=== PATIENT | female | born 1945 | race Caucasian/White ===

== ENCOUNTER → 2017-07-15 15:46 | Outpatient (CLI) | payer MEDICARE, MEDICAID, SELFPAY ==
[2017-07-15 16:07] LABS: Hemoglobin 13.3 g/dl (12.0-15.0); Mean Corp Hgb Conc 33.3 g/gl (32-36); Mean Corpuscular Hgb 32.4 pg (27.0-32.0); Mean Corpuscular Volume 97.6 fL (81-99); Mean Platelet Vol. 11.3 fl (6.2-12.0); Platelet Count 183 K/mm3 (150-450); RBC Distribution Width CV 12.9 % (11.6-14.6); RBC Distribution Width SD 46.1 fl (35.1-43.9); White Blood Count 4.2 K/mm3 (4.4-11.0)
[2017-07-15 16:19] LABS: Scan Indicated on CBC? Y/N NO
[2017-07-15 16:27] LABS: ALB/GLOB Ratio 1.2 RATIO (0.9-2.4); AST(SGOT) 20 U/L (15-37); Alanine Aminotransfer ALT/SGPT 16 U/L (13-56); Albumin, Serum 3.9 g/dL (3.2-5.0); Alkaline Phosphatase 68 U/L (45-117); Anion Gap 6 (5-15); BUN 11 mg/dL (7-18); Chloride 103 mmol/L (98-107); Cholesterol 130 mg/dL (200); EST Glomerular Filtration Rate 59 mL/min (>60); Est Glom Filt Rate - Afr Amer 71 mL/min (>60); Globulin 3.3 g/dL (2.2-4.2); Glucose 90 mg/dL (74-106); High Density Lipoprotein 50 mg/dL; Potassium 4.6 mmol/L (3.5-5.1); Protein, Total 7.2 g/dL (6.4-8.2); Sodium Level 136 mmol/L (136-145); Thyroid Stim Hormone (TSH) 1.22 uIU/mL (0.358-3.74); Triglycerides 59 mg/dL; Very Low Density Lipoprotein 12 mg/dL (5-40)
[2017-07-15 16:39] LABS: International Normalized Ratio 1.1; Prothrombin Time (Protime)PT. 13.7 SECONDS (11.7-14.9)
== END ==
PROVIDERS: Family Provider Student in an Organized Health Care Education/Training Program; PCP Student in an Organized Health Care Education/Training Program; Visit Provider Student in an Organized Health Care Education/Training Program
DX: I10 Essential (primary) hypertension (principal); R23.8 Other skin changes; E78.5 Hyperlipidemia, unspecified; Z79.899 Other long term (current) drug therapy
CPT/HCPCS: 80053; 80061; 84443; 85027; 85610

== ENCOUNTER → 2018-08-21 13:15 | Outpatient (CLI) | payer MEDICARE, MEDICAID, SELFPAY ==
[2018-08-21 13:32] LABS: Hematocrit 37.2 % (37-47); Hemoglobin 12.3 g/dl (12.0-15.0); Mean Corp Hgb Conc 33.1 g/gl (32-36); Mean Corpuscular Hgb 32.1 pg (27.0-32.0); Mean Corpuscular Volume 97.1 fL (81-99); Mean Platelet Vol. 11.8 fl (6.2-12.0); Platelet Count 141 K/mm3 (150-450); RBC Distribution Width CV 12.7 % (11.6-14.6); Red Blood Count 3.83 M/mm3 (4.2-5.4); White Blood Count 3.9 K/mm3 (4.4-11.0)
[2018-08-21 13:34] LABS: Scan Indicated on CBC? Y/N NO
[2018-08-21 13:49] LABS: ALB/GLOB Ratio 1.2 RATIO (0.9-2.4); AST(SGOT) 21 U/L (15-37); Alanine Aminotransfer ALT/SGPT 15 U/L (13-56); Albumin, Serum 3.4 g/dL (3.2-5.0); Alkaline Phosphatase 55 U/L (45-117); Anion Gap 4 (5-15); BUN 12 mg/dL (7-18); BUN/Creat Ratio 12.8 RATIO (10-20); Calcium,Total 8.7 mg/dL (8.5-10.1); Chloride 106 mmol/L (98-107); Cholesterol 102 mg/dL (200); Creatinine, Serum 0.94 mg/dL (0.55-1.02); EST Glomerular Filtration Rate 63 mL/min (>60); Est Glom Filt Rate - Afr Amer 76 mL/min (>60); Globulin 2.9 g/dL (2.2-4.2); Glucose 77 mg/dL (74-106); High Density Lipoprotein 48 mg/dL; Potassium 4.3 mmol/L (3.5-5.1); Protein, Total 6.3 g/dL (6.4-8.2); Sodium Level 138 mmol/L (136-145); Thyroid Stim Hormone (TSH) 1.26 uIU/mL (0.358-3.74); Triglycerides 46 mg/dL; Very Low Density Lipoprotein 9 mg/dL (5-40)
== END ==
PROVIDERS: Family Provider Student in an Organized Health Care Education/Training Program; PCP Student in an Organized Health Care Education/Training Program; Referring Provider Student in an Organized Health Care Education/Training Program; Visit Provider Student in an Organized Health Care Education/Training Program
DX: I10 Essential (primary) hypertension (principal); E78.5 Hyperlipidemia, unspecified; Z79.899 Other long term (current) drug therapy
CPT/HCPCS: 80053; 80061; 84443; 85027

== ENCOUNTER 2021-08-29 19:13 | Emergency (ER) | payer MEDICARE, MEDICAID, SELFPAY ==
[2021-08-29 19:14] VITALS: BP 157/88; PULSE 101; RESP 17; TEMP 37.2; O2SAT 96; BMI 21.4
--- NOTE | 2021-08-29 19:28 | RAD_ITS ---
STUDY: X-RAY CHEST REASON FOR EXAM: Female, 75 years old. cp TECHNIQUE: Single AP portable view of the chest. COMPARISON: None. FINDINGS: There is hyperinflation of the lungs consistent with chronic obstructive lung disease (COPD). There is no demonstrated pleural abnormality. There is moderate cardiac enlargement. Normal mediastinum and yany. Normal visualized pulmonary arteries. Normal visualized aortic arch and descending thoracic aorta. Normal visualized thoracic spine. Normal visualized ribs, clavicles, and shoulders. There is no demonstrated abnormality of the visualized soft tissue structures of the upper abdomen. RAD/Chest 1 View (Portable) IMPRESSION: Emphysema without pneumonia or atelectasis. Electronically Signed: Arcadio Wright MD at 21:48 EDT ,
--- NOTE | 2021-08-29 19:30 | EKG12_ITS ---
Test Reason : DYSRHYTHMIA Blood Pressure : / mmHG Vent. Rate : 096 BPM Atrial Rate : 096 BPM P-R Int : 116 ms QRS Dur : 084 ms QT Int : 342 ms P-R-T Axes : 063 010 047 degrees QTc Int : 432 ms Sinus rhythm with marked sinus arrhythmia Otherwise normal ECG Confirmed by TRISH PINON, COLLENE ([id number]), design editor JOSE MARTIN PAUL ([id number]) on 09/01/2021 9:59:42 AM Referred By: KARIME Confirmed By:COLLEEN CHAMBERS MD
--- NOTE | 2021-08-29 19:32 | EX.ED.DYSGE1 ---
HPI History of Present Illness Chief Complaint: Complaint Detail of Chief Complaint: Confusion Informant: patient and family Onset/Context/Timing Onset: Days Context: Gradual Onset Current Severity: Mild Maximum Severity: Moderate Narrative Narrative: Patient presents with family for evaluation of increased confusion. Several days ago family called PCPs office stating that the patient had some increased confusion along with urinary symptoms and back pain. A prescription for Macrobid was called to the pharmacy. Patient presents to the emergency room today with family because symptoms are not improving and if anything confusion has worsened. Family does believe she had a fever this morning but did not measure it. She reports some mild chest pain but no cough or shortness of breath. She denies abdominal pain. She does report left back pain. She does report dysuria. [facility] Medical History (Updated 08/29/21 @ 23:[address] Tonya Bee MD) Anxiety Depression Dislocation of right shoulder joint Former smoker Hypertension Mitral valve prolapse Home Medications aspirin 325 mg tablet 325 mg PO DAILY@0800 08/23/13 [History Last Taken Unknown] citalopram 20 mg tablet 20 mg PO QHS 08/23/13 [History Last Taken Unknown] lisinopril 20 mg tablet 20 mg PO DAILY 08/23/13 [History Last Taken 08/29/13 05:00] simvastatin 20 mg tablet 20 mg PO QHS 08/23/13 [History Last Taken Unknown] oxycodone-acetaminophen 5 mg-325 mg tablet 1 - 2 tab PO Q4H PRN PRN Pain ##20 08/24/13 [Rx Last Taken Unknown] aspirin 325 mg tablet,delayed release 325 mg PO BID ##30 08/30/13 [Rx Last Taken Unknown] docusate sodium 100 mg capsule (DOK) 100 mg PO BID PRN PRN Constipation ##10 08/30/13 [Rx Last Taken Unknown] oxycodone-acetaminophen 5 mg-325 mg tablet 1 - 2 tab PO Q4H PRN PRN Pain ##60 08/30/13 [Rx Last Taken Unknown] promethazine 25 mg tablet 25 mg PO Q4H PRN PRN Nausea ##10 08/30/13 [Rx Last Taken Unknown] sulfamethoxazole 400 mg-trimethoprim 80 mg tablet (Bactrim) 1 tab PO BID ##14 08/30/13 [Rx Last Taken Unknown] Allergy/AdvReac Type Severity Reaction Status Date / Time Latex, Natural Rubber Allergy Rash Verified 08/29/21 19:16 codeine AdvReac Upset Verified 08/29/21 19:16 Stomach morphine AdvReac Upset Verified 08/29/21 19:16 Stomach Surgical History (Updated 08/29/21 @ 22:[address] Sonam Hartley MD) H/O tubal ligation History of appendectomy History of bladder surgery History of cholecystectomy History of hysterectomy History of surgery on lower extremity Social History Smoking Status: Former smoker ROS ROS ED Constitutional Constitutional ED: Reports fever(s) and subjective; Denies chills Eyes Eyes: Denies change in vision or discharge from eye(s) ENT ENT ED: Denies discharge from eye(s), rhinorrhea or sore throat Cardiovascular Cardiovascular: Reports chest pain; Denies palpitations Respiratory/Chest Respiratory/Chest: Denies cough or dyspnea Gastrointestinal Gastrointestinal: Denies abdominal pain, diarrhea, nausea or vomiting Genitourinary Genitourinary ED: Reports dysuria and urinary frequency; Denies difficulty urinating Musculoskeletal Musculoskeletal: Reports back pain; Denies extremity pain Integumentary Denies Abrasions or rash Neurologic Neurologic: Denies headache(s) or weakness Allergic/Immunologic Allergic/Immunologic ED: Denies lip swelling or urticaria EXAM Physical Exam Const Vital Signs: 08/29/21 19:14 08/29/21 20:40 08/29/21 20:40 Temperature 99 F 99.0 F Temperature Source Temporal Oral Pulse Rate 101 H 99 99 Respiratory Rate 17 29 H 29 H Blood Pressure 157/88 H 139/77 H 139/77 H Blood Pressure Mean 111 97 97 Pulse Ox 96 95 94 Oxygen Delivery Method Room Air Room Air Room Air 08/29/21 23:16 Temperature Temperature Source Pulse Rate 87 Respiratory Rate 16 Blood Pressure 132/104 H Blood Pressure Mean 113 Pulse Ox 97 Oxygen Delivery Method Room Air Positive well nourished and well developed General Appearance ED: well developed HEENT Reports normocephalic and head/scalp atraumatic Eyes PERRL and EOMs intact bilaterally Neck supple Chest Wall inspection of chest normal and palpation of chest normal Resp normal respiratory effort and clear to auscultation bilaterally Cardio regular rate and regular rhythm GI normal to inspection, nondistended, normoactive bowel sounds Palpation: soft Back/Spine no CVA tenderness Extremity normal to inspection Neuro Neuro Narrative: No focal neurologic deficits Sensorium / Orientation: alert Psych mental status grossly normal Skin no rashes or lesions noted MDM MDM MDM Narrative Medical decision making narrative: Patient given IV fluids. EKG, chest x-ray, lab work obtained. Urinalysis ordered. Blood and urine cultures obtained. Lab Data Attestation: I reviewed the patient's lab results. Labs: Laboratory Results - last 24 hr 08/29/21 08/29/21 08/29/21 19:35 19:35 20:00 WBC 7.9 RBC 4.08 L Hgb 12.3 Hct 39.7 MCV 97.3 MCH 30.1 MCHC 31.0 L RDW Std Deviation 50.4 H RDW Coeff of Josue 14.2 Plt Count 200 MPV 11.0 Immature Gran % (Auto) 0.400 Neut % (Auto) 85.3 H Lymph % (Auto) 2.5 L [place] % (Auto) 6.9 Eos % (Auto) 4.8 Baso % (Auto) 0.1 Absolute Neuts (auto) 6.8 Absolute Lymphs (auto) 0.20 L Nucleated RBC % 0 Differential Comment SCANNED Sodium 142 Potassium 3.6 Chloride 108 H Carbon Dioxide 27.0 Anion Gap 7 BUN 21 H Creatinine 1.25 H Estim Creat Clear Calc 28.79 Est GFR (MDRD) Af Amer 54 L Est GFR (MDRD) Non-Af 45 L BUN/Creatinine Ratio 16.8 Glucose 146 H Calcium 8.7 Troponin I High Sens 21 Urine Color Yellow Urine Clarity Clear Urine pH 5.0 Ur Specific [place] 1.020 Urine Protein 30 H Urine Glucose (UA) Normal Urine Ketones Negative Urine Occult Blood 250 H Urine Nitrite Negative Urine Bilirubin Negative Urine Urobilinogen Normal Ur Leukocyte Esterase 25 H Urine RBC 10-25 SEEN Urine WBC 0-5 SEEN Ur Squamous Epith Cells 0-5 SEEN Urine Bacteria RARE Urine Mucus 1+ Radiography Chest X-Ray - ED: 1 View, Read by ED Physician and Chronic Changes Diagnostic Testing: Clinical Impression(s) from Imaging Studies Chest X-Ray 08/29/21 19:28 IMPRESSION: Emphysema without pneumonia or atelectasis. Electronically Signed: Arcadio Wright MD at 21:48 EDT , Abdomen/Pelvis CT 08/29/21 20:34 IMPRESSION: Moderately limited exam due to motion and patient positioning with hands over the abdomen. No acute intra-abdominal pathology suggested. Visualized base of the heart is mildly enlarged. Abdominal aortic atherosclerosis without aneurysmal dilation. Electronically Signed: Mesfin Piña DO at 22:33 EDT , ADDENDUM: 08/29/21 2313 IMPRESSION: undefined Brain CT 08/29/21 20:34 IMPRESSION: Chronic involutional changes of the brain. Electronically Signed: Arcadio Wright MD at 22:42 EDT , EKG Initial EKG: Attestation: I personally reviewed and interpreted this EKG as follows: Interpretation: Sinus Rhythm (Sinus at 96 with no acute ischemia.) Treatment and Re-Evaluation Narrative: CBC and chemistry studies largely unremarkable. BUN is 21 and creatinine 1.25. Urinalysis shows 10-25 red blood cells but 0-5 white cells and no nitrates. This may be because she has a partially treated infection as she has been on Macrobid. With patient having left sided back pain and blood in her urine I did perform a CT flank as well as a head CT given her confusion and history of intracranial hemorrhage. Head CT shows chronic involutional changes. CT flank reveals no acute intra-abdominal pathology. Chest x-ray per my interpretation reveals chronic changes. No infiltrate. Test results discussed with daughters at bedside. They state they would like to try to take her home as that is her wishes. They will stop at her house at least twice a day to ensure she is taking her medication appropriately. They are going to try to get their nieces to come help as well. I advised them to return if they have concerns or if she is unable to care for herself or with family's help. They voiced understanding and agreement. Discharge Plan Triage Chief Complaint: Complaint ED Provider: Tonya Bee Dx/Rx/DC Orders Clinical Impression: Confusion, Left flank pain Instructions: ED Confusion, ED Flank Pain, Uncertain Cause Prescriptions: No Action aspirin 325 MG tablet 325 mg PO DAILY@0800 Label Comments: blood thinner lisinopril 20 MG tablet 20 mg PO DAILY Label Comments: blood pressure citalopram 20 MG tablet 20 mg PO QHS Label Comments: depression simvastatin 20 MG tablet 20 mg PO QHS Label Comments: cholesterol oxycodone-acetaminophen 1 TABLET tablet 1 - 2 tab PO Q4H PRN PRN (Reason: Pain) Qty: 20 0RF Label Comments: pain oxycodone-acetaminophen 1 TABLET tablet 1 - 2 tab PO Q4H PRN PRN (Reason: Pain) Qty: 60 0RF Label Comments: pain promethazine 25 MG tablet 25 mg PO Q4H PRN PRN (Reason: Nausea) Qty: 10 0RF Label Comments: nausea docusate sodium [DOK] 100 MG capsule 100 mg PO BID PRN PRN (Reason: Constipation) Qty: 10 0RF sulfamethoxazole-trimethoprim [Bactrim] 1 EACH tablet 1 tab PO BID Qty: 14 0RF Label Comments: antibiotic aspirin 325 MG tablet 325 mg PO BID Qty: 30 0RF Primary Care Provider: Solo Dodge Referrals: Solo Dodge DO [Primary Care Provider] - 3-5 Days if not improving Disposition Disposition: Home, Self Care
[2021-08-29] MEDS: 0.9% Normal Saline 1,000 ML 150 ML IV (19:52)
[2021-08-29 19:57] LABS: Absolute Neutrophil Count 6.8 X10^3/uL (2.0-7.7); Basophil# 0.01 X10^3/uL; Basophil% 0.1 % (0-1); Eosinophil# 0.38 X10^3/uL; Eosinophils% 4.8 % (0-5); Hematocrit 39.7 % (37-47); Hemoglobin 12.3 g/dL (12.0-15.0); Lymphocyte % 2.5 % (19-41); Mean Corpuscular Hgb 30.1 pg (27.0-32.0); Mean Corpuscular Volume 97.3 fL (81-99); Monocyte# 0.55 X10^3/uL; Monocyte% 6.9 % (0-10); NRBC Flagged by Analyzer 0 % (0-5); Neutrophil # 6.75 X10^3/uL (2.7-7.7); Neutrophil % 85.3 % (47-70); POSITIVE DIFFERENTIAL YES; Platelet Count 200 K/mm3 (150-450); RBC Distribution Width CV 14.2 % (11.6-14.6); RBC Distribution Width SD 50.4 fl (35.1-43.9); Red Blood Count 4.08 M/mm3 (4.2-5.4); White Blood Count 7.9 K/mm3 (4.4-11.0)
[2021-08-29 20:04] LABS: Differential Indicated SCAN CRITERIA MET
[2021-08-29 20:24] LABS: Anion Gap 7 (5-15); BUN 21 mg/dL (7-18); BUN/Creat Ratio 16.8 RATIO (10-20); Calcium,Total 8.7 mg/dL (8.5-10.1); Chloride 108 mmol/L (98-107); Creatinine, Serum 1.25 mg/dL (0.55-1.02); EST Glomerular Filtration Rate 45 mL/min (>60); Est Glom Filt Rate - Afr Amer 54 mL/min (>60); Estimated Creatinine Clearance 28.79 ml/min; Glucose 146 mg/dL (74-106); Potassium 3.6 mmol/L (3.5-5.1); Sodium Level 142 mmol/L (136-145); Troponin-I HS 21 pg/mL (3.0-54.0)
[2021-08-29 20:25] LABS: Color, Urine Yellow (Yellow); Glucose, Dipstick Normal (Normal); Ketone-Dipstick Negative (Negative); Leukocyte Esterase-Dipstick 25 /ul (Negative); Nitrite-Dipstick Negative (Negative); Occult Blood-Urine 250 /ul (Negative); Protein-Dipstick 30 mg/dl (Negative); Urine Bilirubin Dipstick Negative (Negative); Urine Clarity Clear (Clear); Urine Urobilinogen Normal (Normal)
--- NOTE | 2021-08-29 20:34 | CT_ITS ---
INDICATION: left flank pain EXAMINATION: CT ABDOMEN AND PELVIS WITHOUT CONTRAST - CT Abdomen And Pelvis W/O Contrast Injection TECHNIQUE: Helically acquired images were obtained of the abdomen and pelvis without oral or IV contrast. A radiation dose optimization technique was used for this scan. IV Contrast dosage and agent: None. Oral contrast: None. COMPARISON: Chest x-ray from earlier the same evening. FINDINGS: LOWER CHEST: Significant lung motion limiting assessment. No gross abnormality. Heart is mildly enlarged. Decreased quality of exam from patient''s hands overlying the upper abdomen. There is also moderate motion. LIVER: Homogeneous. No focal mass. GALLBLADDER AND BILIARY TREE: Not visualized. No intra- or extrahepatic biliary ductal dilation. PANCREAS: No focal cystic or solid mass. SPLEEN: Normal size without focal cystic or solid mass. ADRENAL GLANDS: No nodules. KIDNEYS, URETERS and BLADDER: Normal renal size and position. No mass. No hydronephrosis. Bladder is unremarkable. PERITONEUM: No ascites or free air. No other fluid collection. BOWEL: No evidence of acute appendicitis. No abnormally distended bowel loops or air fluid levels. No wall thickening or mass. No focal inflammatory changes. LYMPH NODES: No enlarged mesenteric or retroperitoneal lymph nodes. VESSELS: No aneurysmal dilation. Moderate distal abdominal aorta and iliac branch vessel atherosclerosis. REPRODUCTIVE ORGANS: Absent or atrophic. ABDOMINAL WALL: No discrete abdominal or pelvic wall hernia. BONES: No lytic or blastic abnormality. No fracture. Bone mineral density appears diffusely decreased. Mild degenerative changes bilateral hips. CT/Abdomen/Pelvis without Cont IMPRESSION: Moderately limited exam due to motion and patient positioning with hands over the abdomen. No acute intra-abdominal pathology suggested. Visualized base of the heart is mildly enlarged. Abdominal aortic atherosclerosis without aneurysmal dilation. Electronically Signed: Mesfin Piña DO at 22:33 EDT ,
--- NOTE | 2021-08-29 20:34 | CT_ITS ---
STUDY: CT BRAIN WITHOUT CONTRAST REASON FOR EXAM: Female, 75 years old. confusion RADIATION DOSAGE (If Supplied By Facility): CTDIvol = ( 44.99 ) mGy, DLP = ( 762.36 ) mGycm TECHNIQUE: Transaxial CT imaging of the brain was performed without administration of intravenous contrast material. Individualized dose optimization techniques were used for this CT. COMPARISON: No relevant priors. FINDINGS: Normal soft tissue structures. Normal calvarium. There is mild cerebral atrophy with widening of the extra-axial spaces and ventricular dilatation. There are areas of decreased attenuation within the white matter tracts of the supratentorial brain, consistent with microvascular disease changes. Normal basal ganglia and thalami. Normal brainstem. Normal cerebellum. There is no intracranial hemorrhage. There are no findings of an acute ischemic infarction. Normal visualized paranasal sinuses. CT/Brain/Head without Contrast IMPRESSION: Chronic involutional changes of the brain. Electronically Signed: Arcadio Wright MD at 22:42 EDT ,
[2021-08-29 20:37] LABS: White Blood Cells 0-5 SEEN /hpf (0-5)
[2021-08-29 20:38] LABS: Mucous, Urine 1+ /hpf (<or=2+); Red Blood Cells-Urine 10-25 SEEN /hpf (0-5); Squamous Epithelial Cells - UA 0-5 SEEN /hpf (5-10)
[2021-08-29 20:38] LABS: Differential Comment SCANNED
[2021-08-29 20:39] LABS: Bacteria RARE /hpf (None Seen)
[2021-08-29 20:40] VITALS: BP 139/77; PULSE 99; RESP 29; TEMP 37.2; O2SAT 94; O2SAT 95
[2021-08-29 23:16] VITALS: BP 132/104; PULSE 87; RESP 16; O2SAT 97
[2021-08-29 23:36] VITALS: BP 119/74; PULSE 80; RESP 16; O2SAT 94
== END 2021-08-29 23:37 | disposition home or self-care (01) ==
PROVIDERS: Emergency Provider Emergency Medicine; PCP Student in an Organized Health Care Education/Training Program; Visit Provider Emergency Medicine
DX: R41.0 Disorientation, unspecified (principal); R31.9 Hematuria, unspecified; R10.9 Unspecified abdominal pain; M54.9 Dorsalgia, unspecified; I10 Essential (primary) hypertension; R30.0 Dysuria; F32.A Depression, unspecified; F41.9 Anxiety disorder, unspecified; Z79.82 Long term (current) use of aspirin; Z79.899 Other long term (current) drug therapy; Z87.891 Personal history of nicotine dependence
CPT/HCPCS: 70450; 71045; 74176; 80048; 81001; 84484; 85025; 87040; 87086; 93005; 96360; 96361; 99284; J7030; A4216

== ENCOUNTER 2021-09-01 12:58 | Emergency (ER) | payer MEDICARE, MEDICAID, SELFPAY ==
[2021-09-01 13:00] VITALS: BP 135/96; PULSE 72; RESP 16; TEMP 36.6; O2SAT 97; BMI 25.4
--- NOTE | 2021-09-01 13:35 | CT_ITS ---
STUDY: CT BRAIN WITHOUT CONTRAST REASON FOR EXAM: Female, 75 years old. Head injury RADIATION DOSAGE (If Supplied By Facility): CTDIvol = ( 44.99 ) mGy, DLP = ( 762.36 ) mGycm TECHNIQUE: Transaxial CT imaging of the brain was performed without administration of intravenous contrast material. Individualized dose optimization techniques were used for this CT. COMPARISON: Comparison is made with prior study dated 08/29/2021. FINDINGS: Normal soft tissue structures. Normal calvarium. There is mild cerebral atrophy with widening of the extra-axial spaces and ventricular dilatation. There are areas of decreased attenuation within the white matter tracts of the supratentorial brain, consistent with microvascular disease changes. Tiny old lacunar infarct in the right basal ganglia. Normal brainstem. Normal cerebellum. There is no intracranial hemorrhage. There are no findings of an acute ischemic infarction. Normal visualized paranasal sinuses. CT/Brain/Head without Contrast IMPRESSION: Chronic involutional changes of the brain. Electronically Signed: Brett Adams MD at 13:54 EDT ,
--- NOTE | 2021-09-01 13:35 | CT_ITS ---
STUDY: CT LUMBAR SPINE WITHOUT CONTRAST REASON FOR EXAM: Female, 75 years old. Back pain due to injury. RADIATION DOSAGE (If Supplied By Facility): CTDIvol = ( 15.94 ) mGy, DLP = ( 471.26 ) mGycm TECHNIQUE: The patient was scanned in a multi detector CT scanner. High resolution transaxial imaging was performed. Images were obtained from the L1 to S1 vertebral level. Sagittal and coronal images were reconstructed. Individualized dose optimization techniques were used for this CT. COMPARISON: None FINDINGS: There is an exaggerated lumbar lordosis. There is no substantial scoliosis. Normal vertebrae of the lumbar spine. L1-2: Normal endplates. Normal disc height and morphology. Normal bilateral facet joints. Normal central canal and bilateral lateral recesses. Normal bilateral intervertebral neural foramina. L2-3: Normal endplates. Normal disc height and morphology. Normal bilateral facet joints. Normal central canal and bilateral lateral recesses. Normal bilateral intervertebral neural foramina. L3-4: Facet joint osteoarthropathy and hypertrophy. Moderate degree of bilateral neural foraminal stenosis. L4-5: Moderate degree of central and bilateral neural foraminal stenosis due to hypertrophy of the facet joints as well as the ligamentum flavum and diffuse posterior disc bulge. L5-S1: Normal endplates. Normal disc height and morphology. Normal bilateral facet joints. Normal central canal and bilateral lateral recesses. Normal bilateral intervertebral neural foramina. Atherosclerotic plaque formation of the abdominal aorta. CT/Spine Lumbar without Contrast IMPRESSION: Multilevel degenerative changes, as described above. Electronically Signed: Brett Adams MD at 13:57 EDT ,
--- NOTE | 2021-09-01 13:43 | RAD_ITS ---
STUDY: X-RAY - PELVIS AND RIGHT HIP REASON FOR EXAM: Female, 75 years old. Injury TECHNIQUE: 3 views of the pelvis and hip. COMPARISON: None. FINDINGS: There is a non-specific bowel gas pattern. There are multiple calcified phleboliths. Normal bilateral iliac wings, sacroiliac joints and visualized sacrum. Normal bilateral superior and inferior pubic rami. There is narrowing with sclerosis of the pubic symphysis. Normal bilateral ischial tuberosities. Normal visualized femoral head. Normal acetabulum. Normal hip joint. RAD/HIP, UNI W/ Pelvis 2-3 Views IMPRESSION: Degenerative changes. No acute abnormality is seen. Electronically Signed: Brett Adams MD at 14:11 EDT ,
--- NOTE | 2021-09-01 13:53 | EDS_ITS ---
HPI History of Present Illness Chief Complaint: Fall Informant: patient and family Narrative Narrative: 75-year-old female history of dementia presents to the emergency department with her family following a fall. Patient was seen few days ago following a fall. Apparently she went home and fell again and is now complaining of some low back pain headache and left hip pain. Family states that they are starting to look into ways to can keep her safe. She states that she is falling when the cats tripped her up. She is not using a walker or cane. [facility] Medical History Anxiety Depression Dislocation of right shoulder joint Former smoker Hypertension Mitral valve prolapse Home Medications aspirin 325 mg tablet 325 mg PO DAILY@0800 08/23/13 [History Last Taken Unknown] citalopram 20 mg tablet 20 mg PO QHS 08/23/13 [History Last Taken Unknown] lisinopril 20 mg tablet 20 mg PO DAILY 08/23/13 [History Last Taken 08/29/13 05:00] simvastatin 20 mg tablet 20 mg PO QHS 08/23/13 [History Last Taken Unknown] oxycodone-acetaminophen 5 mg-325 mg tablet 1 - 2 tab PO Q4H PRN PRN Pain ##20 08/24/13 [Rx Last Taken Unknown] aspirin 325 mg tablet,delayed release 325 mg PO BID ##30 08/30/13 [Rx Last Taken Unknown] docusate sodium 100 mg capsule (DOK) 100 mg PO BID PRN PRN Constipation ##10 08/30/13 [Rx Last Taken Unknown] oxycodone-acetaminophen 5 mg-325 mg tablet 1 - 2 tab PO Q4H PRN PRN Pain ##60 08/30/13 [Rx Last Taken Unknown] promethazine 25 mg tablet 25 mg PO Q4H PRN PRN Nausea ##10 08/30/13 [Rx Last Taken Unknown] sulfamethoxazole 400 mg-trimethoprim 80 mg tablet (Bactrim) 1 tab PO BID ##14 08/30/13 [Rx Last Taken Unknown] Allergy/AdvReac Type Severity Reaction Status Date / Time Latex, Natural Rubber Allergy Rash Verified 09/01/21 13:02 codeine AdvReac Upset Verified 09/01/21 13:02 Stomach morphine AdvReac Upset Verified 09/01/21 13:02 Stomach Surgical History H/O tubal ligation History of appendectomy History of bladder surgery History of cholecystectomy History of hysterectomy History of surgery on lower extremity Social History (Updated 09/01/21 @ 13:[address] Ryan Martini DO) Smoking Status: Former smoker substance use type: does not use ROS ROS ED Constitutional Constitutional ED: Denies chills or weight loss Eyes Eyes: Denies change in vision or diplopia ENT ENT ED: Denies ear pain, rhinorrhea or sore throat Cardiovascular Cardiovascular: Denies chest pain, orthopnea, palpitations or racing heartbeat Respiratory/Chest Respiratory/Chest: Denies cough, dyspnea or orthopnea Gastrointestinal Gastrointestinal: Denies abdominal pain, diarrhea, nausea or vomiting Genitourinary Genitourinary ED: Denies dysuria, hematuria or urinary frequency Musculoskeletal Musculoskeletal: Reports back pain and other Details: Left hip pain ; Denies arthralgias or myalgias Integumentary Denies abscess or rash Neurologic Neurologic: Reports headache(s); Denies weakness Psychiatric Psychiatric: Denies anxiety, depression, suicidal ideation or suicidal thoughts Endocrine Endocrinology: Denies polydipsia, polyphagia or polyuria Allergic/Immunologic Allergic/Immunologic ED: Denies mouth swelling, tongue swelling or urticaria EXAM Physical Exam Const Vital Signs: 09/01/21 13:00 09/01/21 13:35 Temperature 97.8 F Temperature Source Temporal Pulse Rate 72 Respiratory Rate 16 Respiratory Effort Normal Non-Labored Respiratory Depth Normal Respiratory Pattern Normal Blood Pressure 135/96 H Blood Pressure Mean 109 Pulse Ox 97 Oxygen Delivery Method Room Air Positive well nourished and well developed General Appearance ED: well developed HEENT Reports normocephalic, head/scalp atraumatic and moist mucous membranes Eyes PERRL and EOMs intact bilaterally Neck no lymphadenopathy, supple and no JVD Resp normal respiratory effort and clear to auscultation bilaterally Cardio regular rate, regular rhythm and no murmurs GI normal to inspection, nondistended, normoactive bowel sounds and non-tender Palpation: soft Back/Spine normal ROM Back/Spine Narrative: Patient reports tenderness to palpation over the lower lumbar spine and sacrum. Tenderness over the left hip. Extremity normal to inspection General Extremety ED: Negative for edema General Extremity: Negative for edema Neuro CN's II-XII intact bilaterally Sensorium / Orientation: alert and orientation impaired Motor Exam: strength 5/5 throughout Psych mental status grossly normal Mood & Affect: Negative for depressed or tearful Skin no rashes or lesions noted and no wounds MDM MDM MDM Narrative Medical decision making narrative: CT the brain was negative for hemorrhage CT of the lumbar spine does not demonstrate any fractures. My interpretation of the plain films of the left hip and pelvis is degenerative changes but no fracture noted. I did social work visit with the patient and her family. We talked about her transitioning to some form of assistance at home. Radiography Diagnostic Testing: Clinical Impression(s) from Imaging Studies Brain CT 09/01/21 13:35 IMPRESSION: Chronic involutional changes of the brain. Electronically Signed: Brett Adams MD at 13:54 EDT , Lumbar Spine CT 09/01/21 13:35 IMPRESSION: Multilevel degenerative changes, as described above. Electronically Signed: Brett Adams MD at 13:57 EDT , Hip/Pelvis X-Ray 09/01/21 13:43 IMPRESSION: Degenerative changes. No acute abnormality is seen. Electronically Signed: Brett Adams MD at 14:11 EDT , Discharge Plan Triage Chief Complaint: Fall ED Provider: Ryan Martini Dx/Rx/DC Orders Clinical Impression: Fall, Contusion of lower back and pelvis, initial encounter, Dementia Instructions: ED Back Contusion, ED Fall Prevention Prescriptions: No Action aspirin 325 MG tablet 325 mg PO DAILY@0800 Label Comments: blood thinner lisinopril 20 MG tablet 20 mg PO DAILY Label Comments: blood pressure citalopram 20 MG tablet 20 mg PO QHS Label Comments: depression simvastatin 20 MG tablet 20 mg PO QHS Label Comments: cholesterol oxycodone-acetaminophen 1 TABLET tablet 1 - 2 tab PO Q4H PRN PRN (Reason: Pain) Qty: 20 0RF Label Comments: pain oxycodone-acetaminophen 1 TABLET tablet 1 - 2 tab PO Q4H PRN PRN (Reason: Pain) Qty: 60 0RF Label Comments: pain promethazine 25 MG tablet 25 mg PO Q4H PRN PRN (Reason: Nausea) Qty: 10 0RF Label Comments: nausea docusate sodium [DOK] 100 MG capsule 100 mg PO BID PRN PRN (Reason: Constipation) Qty: 10 0RF sulfamethoxazole-trimethoprim [Bactrim] 1 EACH tablet 1 tab PO BID Qty: 14 0RF Label Comments: antibiotic aspirin 325 MG tablet 325 mg PO BID Qty: 30 0RF Primary Care Provider: Solo Dodge Referrals: Solo Dodge DO [Primary Care Provider] - As soon as possible Disposition Disposition: Home, Self Care
--- NOTE | 2021-09-01 15:30 | CM.ED ---
Addendum entered by Zoe Cornejo 09/01/21 22:28: APS referral made to [facility] at [facility]. Addendum entered by Zoe Cornejo 09/01/21 21:32: SW placed a call to [facility] at [facility] and left message regarding referral. Original Note: Social Work Note Reason for Referral: Community Resources. Pt has Dementia and can no longer live alone. SW in to speak with pt. Pt's daughter Candace present and pt's granddaughter present in room. Pt states that things at home are getting better and she doesn't want to leave home. Pt states that she has 3 cats at home and she wants to be able to live safely at home. Candace states that pt needs assistance with cooking, cleaning, and bathing. SW spoke with pt, Candace, and pt's granddaughter about community resources such as Assisted Living, Private Duty Aides, [facility], Independent Living, HHC, etc. Candace states that pt does have a CM through [facility] but she cannot remember the name. Candace states that pt gets an aide 1x week, [employer] and has an Emergency Response button. Candace states that she has to be at pt's home when the aide is there as pt wants her there. Candace asked about the nurse from [facility] coming out to see pt. SW informed Candace that there has to be a skilled need for an RN to come out such as wound care, IV antibiotics, pt getting on new medication and needing education and assistance with medications, etc. SW spoke with Candace and pt about how may could qualify for possibly [facility] for PT/OT since pt has been having falls recently. SW offered to make a referral to [facility] for PT/OT and pt states she doesn't need that right now. SW informed Candace and pt that if pt decides she needs HHC to let her PCP, Dr. Dodge know, and Dr. Dodge can arrange for HHC in the home. SW spoke with pt about how there are community resources out there to help keep pt in the home but pt has to allow people to help her and to use the community resources. Candace states that pt has an emergency response button but she never got alerted that pt fell. SW spoke wtith pt about how she needs to use her Emergency Medical Alert button when she falls if she cannot get up. Pt states understanding. Pt states she knows. CHARLENE provided Candace with information on [facility], Assisted Livings, Private Duty Aides, HHC, and [employer] companies. CHARLENE spoke with pt about Assisted Living. Pt states she has thought about it. CHARLENE informed Candace that there is a program called the Assisted Living Waiver program through [facility] and if pt qualifies, pt could get on that program. CHARLENE encouraged Candace to reach out to pt's CM at [facility] to inquire if pt qualifies for that program. Candace states that pt does take an antidepressants. Pt denied any current suicidal or homicidal thoughts. Pt denied any additional concerns to this worker. Candace asked to speak with this worker outside of pt's room. Candace states that pt can be very confused and states pt is needing more assistance. Candace states that she cannot always be there to help. Candace asked about looking into SNF for pt. CHARLENE spoke with Candace about SNF and the difference between skilled and care home care. CHRALENE informed Candace that to get salon receptionist, [employer] would need to approve it. Candace states that physically pt is able to ambulate. CHARLENE informed Candace that insurance looks at how far pt's walk and with how much assistance so there's a chance since pt is able to ambulate well, that [employer] would deny her SNF. CHARLENE spoke with Candace about care home care. CHARLENE spoke with Candace about looking into guardianship for pt and explained that she would need to go through pt's PCP. Candace states that she cannot get pt to go to her doctor's appointment. CHARLENE spoke with Candace about APS and how they are really good community resources and encouraged Candace to call APS herself to see if they can assist her. CHARLENE informed Candace that this worker can also make a call to APS just to provide the initial referral. Candace states that she will also call pt's CM at [facility] and inquire about Assisted Living Waiver. CHARLENE back in to speak with pt and spoke with pt about using a cane or walker when up and walking to help with stability. Pt states that she has a cane at home that she could use. Pt denied additional needs or concerns at this time. SW to make APS report. Zoe Cornejo MEDICAL RESEARCH SCIENTIST, ROOM SERVICE SUPERVISOR
== END 2021-09-01 16:14 | disposition home or self-care (01) ==
PROVIDERS: Emergency Provider Emergency Medicine; PCP Student in an Organized Health Care Education/Training Program; Visit Provider Emergency Medicine
DX: S20.229A Contusion of unspecified back wall of thorax, initial encounter (principal); M25.552 Pain in left hip; W01.0XXA Fall on same level from slipping, tripping and stumbling without subsequent striking against object, initial encounter; F03.90 Unspecified dementia, unspecified severity, without behavioral disturbance, psychotic disturbance, mood disturbance, and anxiety; I10 Essential (primary) hypertension; F32.A Depression, unspecified; F41.9 Anxiety disorder, unspecified; Z79.82 Long term (current) use of aspirin; Z79.899 Other long term (current) drug therapy; Z87.891 Personal history of nicotine dependence
CPT/HCPCS: 70450; 72131; 73502; 99282